=== PATIENT | male | born 1980 | race African-American/Black ===

== ENCOUNTER 2019-08-01 17:00 | Emergency (ER) | payer OTHER ==
[~2019-08-01] VITALS: Ht 188 cm; Wt 86.4 kg
[~2019-08-01 17:00] MED LIST: NOCURR
[2019-08-01] MEDS ORDERED: SODIUM CHLORIDE 0.9% 100 ML ONE (17:14)
[2019-08-01] MEDS ORDERED: IOVERSOL 320 MG/ML 100 ML VIAL ONE (17:14)
[2019-08-01] MEDS: PERTUSS(ACELL),DIPH,TET VAC/PF 0.5 ML VIAL IM ONE (17:39)
[2019-08-01 17:56] LABS: BASOPHILS % (AUTO) 0.2 % (0.0-2.0); EOSINOPHILS % (AUTO) 1.9 % (1.0-6.0); HEMOGLOBIN 12.1 g/dL (13.5-17.5); LYMPHOCYTES # (AUTO) 2.1 K/uL (1.0-4.8); LYMPHOCYTES % (AUTO) 38.3 % (22.0-44.0); MEAN CORPUSCULAR HEMOGLOBIN 32.3 pg (26.0-34.0); MEAN CORPUSCULAR HGB CONC 32.7 G/dL (31.0-37.0); MEAN CORPUSCULAR VOLUME 99 fL (80-100); MONOCYTES # (AUTO) 0.7 K/uL (0.1-1.0); MONOCYTES % (AUTO) 12.1 % (2.0-9.0); NEUTROPHILS # (AUTO) 2.6 K/uL (1.8-7.7); NEUTROPHILS % (AUTO) 47.5 % (40.0-70.0); PLATELET COUNT (AUTO) 129 K/uL (150-450); RED BLOOD CELL COUNT(AUTO) 3.75 MIL/uL (4.50-5.90); RED CELL DISTRIBUTION WIDTH 12.9 % (11.5-14.5)
[2019-08-01 18:11] LABS: PROTHROMBIN TIME 10.1 SEC (9.4-11.6)
[2019-08-01 18:12] LABS: ANION GAP 15 mmol/L (8-16); CALCIUM, TOTAL 8.6 mg/dL (8.8-10.5); CARBON DIOXIDE 23 mmol/L (22-29); CHLORIDE 105 mmol/L (98-107); CREATININE 1.28 mg/dL (0.60-1.30); GLOMERULAR FILTR. RATE CALC > 60 mL/min (>60); GLUCOSE,RANDOM 112 mg/dL (70-110); POTASSIUM 3.9 mmol/L (3.5-5.1); SODIUM SERUM 143 mmol/L (136-145); UREA NITROGEN, BLOOD 18 mg/dL (7-18)
[2019-08-01 18:16] LABS: ALANINE AMINOTRANSFERASE 54 U/L (12-78); ALBUMIN 3.9 g/dL (3.4-5.0); ALKALINE PHOSPHATASE 113 U/L (46-116); ASPARTATE AMINOTRANSFERASE 27 U/L (15-37); BILIRUBIN,TOTAL 0.2 mg/dL (0.1-1.0); TOTAL PROTEIN, SERUM 7.3 g/dL (6.4-8.2)
[2019-08-01] MEDS: CeFAZolin 1 GM/DEXTROSE 50 ML IV ONE (18:57)
[2019-08-01] MEDS: SODIUM CHLORIDE 0.9% 250 ML IRRIG SOLUTION BOTTLE IRRIG ONE (18:57)
[2019-08-01 20:00] VITALS: BP 129/65
== END 2019-08-01 20:06 | disposition home or self-care (01) ==
LOC: EMS 17:00
DX: S21.211A Laceration without foreign body of right back wall of thorax without penetration into thoracic cavity, initial encounter (principal); S41.011A Laceration without foreign body of right shoulder, initial encounter; X99.1XXA Assault by knife, initial encounter; Y93.89 Activity, other specified; Y92.89 Other specified places as the place of occurrence of the external cause; Y99.8 Other external cause status
CPT/HCPCS: 36415; 71260; 72128; 80053; 85025; 85610; 85730; 86850; 86900; 86901; 90471; 90715; 96365; 99291; J0690; J7050; Q9967

== ENCOUNTER 2019-12-18 03:00 | Emergency (ER) | payer OTHER ==
[~2019-12-18] VITALS: Ht 190.5 cm; Wt 86.4 kg
[2019-12-18] MEDS ORDERED: DOCUSATE SODIUM 100 MG CAPSULE PO ONE (03:30)
[2019-12-18] MEDS ORDERED: PHENYLEPHRINE/SHK LV/MIN OIL/PET 57 GM OINTMENT TP ONE (03:30)
[2019-12-18 03:33] VITALS: BP 138/88
== END 2019-12-18 03:44 | disposition home or self-care (01) ==
LOC: EMS 03:00
DX: K64.4 Residual hemorrhoidal skin tags (principal)

== ENCOUNTER 2020-08-06 01:35 | Emergency (ER) | payer OTHER ==
[~2020-08-06] VITALS: Ht 190.5 cm; Wt 84.1 kg
[2020-08-06 01:40] VITALS: BP 137/84
[2020-08-06] MEDS ORDERED: BENZONATATE 100 MG CAPSULE PO ONE (03:15)
[2020-08-06 04:09] LABS: COVID AG,FIA SOURCE NASOPHARYNGEAL
== END 2020-08-06 05:02 | disposition home or self-care (01) ==
LOC: EMS 01:37
DX: J40 Bronchitis, not specified as acute or chronic (principal); Z20.822 Contact with and (suspected) exposure to COVID-19
CPT/HCPCS: 71045; 99284